=== PATIENT | male | born 1975 | race Caucasian/White ===

== ENCOUNTER 2020-12-18 02:31 | Emergency (ER) | payer BC ==
[~2020-12-18] VITALS: Ht 180.3 cm; Wt 95.3 kg
[2020-12-18 03:05] LABS: URINE BILIRUBIN NEGATIVE (Negative); URINE BLOOD 3+ (Negative); URINE CLARITY CLEAR; URINE COLOR DARK YELLOW; URINE GLUCOSE-RANDOM NEGATIVE (Negative); URINE KETONES NEGATIVE (Negative); URINE LEUKOCYTES-REFLEX NEGATIVE (Negative); URINE NITRITE-REFLEX NEGATIVE (Negative); URINE PROTEIN TRACE (Negative); URINE SPECIFIC GRAVITY >= 1.030 (1.005-1.030)
[2020-12-18 03:14] LABS: BACTERIA-REFLEX None Seen /HPF (None Seen); CASTS None Seen /LPF (None Seen); CRYSTALS None Seen /LPF (None Seen); MUCUS 0-3 Light strn/LPF (None Seen); SQUAMOUS NONE SEEN /LPF (0-3); URINE RBC >20 Many /HPF (0-2); URINE WBC-REFLEX None Seen /HPF (0-5)
[2020-12-18 03:15] LABS: HEMOGLOBIN 15.2 gm/dL (14.0-18.0); MCH 29.4 pg (26.0-34.0); MCHC 33.1 g/dL (28.0-37.0); MCV 88.8 fL (80.0-100.0); MPV 8.1 fl. (7.2-11.1); RBC 5.18 mil/uL (4.50-6.00); RDW-CV 14.1 % (10.5-14.5); WBC 11.2 thou/uL (4.0-11.0)
[2020-12-18 03:26] LABS: CALCIUM 8.9 mg/dL (8.5-10.1); CREATININE 1.1 mg/dL (0.6-1.3); POTASSIUM 3.7 mmol/L (3.5-5.1)
[2020-12-18 03:36] LABS: ALBUMIN 3.9 g/dL (3.4-5.0); TOTAL BILIRUBIN 0.2 mg/dL (<0.1-1.0); TOTAL PROTEIN 7.5 g/dL (6.4-8.2)
[2020-12-18] MEDS ORDERED: TORADOL 10 MG T10 MG PO (04:50)
[2020-12-18] MEDS ORDERED: HYDROCODON-ACE1 EAC7 PO (04:50)
[2020-12-18] MEDS ORDERED: FLOMAX0.4 MG PO (04:50)
[2020-12-18] MEDS ORDERED: ZOFRAN ODT4 MG PO (04:50)
[2020-12-18 05:05] VITALS: BP 134/63
== END 2020-12-18 05:07 | disposition home or self-care (01) ==
LOC: M.ERS 02:31
PROVIDERS: Personal Emergency Response Attendant
DX: N23 Unspecified renal colic (principal); N13.30 Unspecified hydronephrosis